=== PATIENT | female | born 1940 | race Caucasian/White ===

== ENCOUNTER 2016-03-06 03:01 | Emergency (ER) | payer MEDICARE, MEDICAID ==
[~2016-03-06] VITALS: Ht 165.1 cm; Wt 61.2 kg
[2016-03-06 03:02] VITALS: BP 147/52
== END 2016-03-06 04:04 | disposition home or self-care (01) ==
LOC: ER 03:08
DX: K94.03 Colostomy malfunction (principal); G93.40 Encephalopathy, unspecified; J44.9 Chronic obstructive pulmonary disease, unspecified; E11.9 Type 2 diabetes mellitus without complications; E78.5 Hyperlipidemia, unspecified; F03.90 Unspecified dementia, unspecified severity, without behavioral disturbance, psychotic disturbance, mood disturbance, and anxiety; I10 Essential (primary) hypertension; I48.91 Unspecified atrial fibrillation; Z86.73 Personal history of transient ischemic attack (TIA), and cerebral infarction without residual deficits; Z93.1 Gastrostomy status; Z88.6 Allergy status to analgesic agent; Z88.5 Allergy status to narcotic agent
CPT/HCPCS: 43760; 74000; 99284; A4606; Z7610

== ENCOUNTER 2016-08-05 04:25 | Inpatient (IN) | payer MEDICARE, MEDICAID ==
[~2016-08-05] VITALS: Ht 160 cm; Wt 69.4 kg
[2016-08-05] VITALS (39 sets, daily range): BP systolic 58–177; BP diastolic 21–93
--- NOTE | 2016-08-05 04:30 | NUR ---
PT BIB [facility] WITH A C/O SOB. PT ARRIVED ON A BREATHING TX. PT IS SATURATING AT 95%. PT IS BASELINE CONFUSED PER EMS. PT IS ON THE MONITOR AND CONTINUOUS PULSE OX. PT HAS BLE CONTRACTURES. PT WAS TAKEN OFF THE BREATHING TX. PT TO BE PLACED ON SIMPLE MASK. PT IS ON A DIAPER AND HAS A GTUBE. DR. SHAHID IS AT THE BEDSIDE.
[2016-08-05] MEDS ORDERED: IV NS 0.9% 500 ML BAG IV ONE (05:00)
[2016-08-05] MEDS ORDERED: methylPREDNISolone SOD SUCC 125 MG/2ML VIAL IV ONE (05:00)
[2016-08-05 05:01] LABS: BASOPHILS % (AUTO) 0.2 % (0.0-2.0); HEMATOCRIT 34 % (33-45); LYMPHOCYTES # (AUTO) 0.6 /CMM (0.8-4.8); LYMPHOCYTES % (AUTO) 3.9 % (20.0-44.0); MEAN CORPUSCULAR HEMOGLOBIN 25 PG (26.0-33.0); MEAN CORPUSCULAR HGB CONC 32 g/dl (31.0-36.0); MEAN CORPUSCULAR VOLUME 77 fL (82-100); MONOCYTES # (AUTO) 0.6 /CMM (0.1-1.30); MONOCYTES % (AUTO) 3.8 % (2.0-12.0); NEUTROPHILS # (AUTO) 13.7 /CMM (1.8-8.9); NEUTROPHILS % (AUTO) 92.1 % (43.0-81.0); PLATELET COUNT (AUTO) 365 /CMM (150-450); RED BLOOD CELL COUNT(AUTO) 4.41 MIL/uL (4.0-5.2); WHITE BLOOD COUNT (AUTO) 14.9 K/uL (4.3-11.0)
--- NOTE | 2016-08-05 05:05 | NUR ---
PT ASSIGNED TO [facility] BED 309-1
[2016-08-05 05:09] LABS: CALCIUM, SERUM 8.6 mg/dL (8.5-10.1); CARBON DIOXIDE 22 mmol/L (21-32); CHLORIDE 105 mmol/L (98-107); CREATININE 0.8 mg/dL (0.6-1.3); GLUCOSE 271 mg/dL (74-106); POTASSIUM 4.6 mmol/L (3.5-5.1); SODIUM SERUM 138 mmol/L (136-145); UREA NITROGEN, BLOOD 40 mg/dL (7-18)
[2016-08-05] MEDS ORDERED: IV SET PRIMARY 1 EA INFUS.SET MC ONE ×2 (05:09→06:01)
[2016-08-05] MEDS ORDERED: IV NS 0.9% 500 ML IV ONE ×2 (05:09→06:01)
[2016-08-05] MEDS ORDERED: methylPREDNISolone SOD SUCC 125 MG/2ML VIAL ONE (05:09)
[2016-08-05 05:15] LABS: INR 3.23 (0.87-1.13); PROTHROMBIN TIME 37.3 SECS (9.5-12.7)
--- NOTE | 2016-08-05 05:15 | NUR ---
PT HAS A WET DIAPER. PT WAS CLEANED AND NEW DIAPER APPLIED. NO SKIN BREAKDOWN NOTED. SLIGHT REDNESS NOTED ON RT INNER THIGH AND SLIGHT DISCOLORATION ON BUTTOCK.
[2016-08-05 05:18] LABS: TROPONIN I 9.906 ng/mL (0.00-0.056)
[2016-08-05] MEDS ORDERED: MAGN400O4 GT (05:20)
[2016-08-05] MEDS ORDERED: ATOR10TA GT (05:20)
[2016-08-05] MEDS ORDERED: WARF3TAB29 PO (05:20)
[2016-08-05] MEDS ORDERED: MAGN400O4 PO (05:20)
[2016-08-05] MEDS ORDERED: NA P133E RC (05:20)
[2016-08-05] MEDS ORDERED: CRAN3875 PO (05:20)
[2016-08-05] MEDS ORDERED: NUT.237L30 PO (05:20)
[2016-08-05] MEDS ORDERED: DOCU-25 PO (05:20)
[2016-08-05] MEDS ORDERED: ACET-868 GT (05:20)
[2016-08-05] MEDS ORDERED: BISA-79 PO (05:20)
[2016-08-05] MEDS ORDERED: INSU100V10 SQ (05:20)
[2016-08-05] MEDS ORDERED: LOSA25TA13 GT (05:20)
[2016-08-05] MEDS ORDERED: METO50TA3 GT (05:20)
[2016-08-05] MEDS ORDERED: DEXT1CAP3 GT (05:20)
[2016-08-05 05:21] LABS: ALANINE AMINOTRANSFERASE 27 U/L (12-78); ALBUMIN 2.6 g/dL (3.4-5.0); ALKALINE PHOSPHATASE 136 U/L (46-116); ASPARTATE AMINOTRANSFERASE 88 U/L (15-37); B-TYPE NATRIURETIC PEPTIDE 16681 PG/ML (0-125); BILIRUBIN,DIRECT 0.1 mg/dL (0.0-0.2); BILIRUBIN,TOTAL 0.9 mg/dL (0.2-1.0); TOTAL PROTEIN, SERUM 7.4 g/dL (6.4-8.2)
[2016-08-05 05:25] LABS: BAND % (MANUAL) 1 % (0.0-5.0); LYMPHOCYTES % (MANUAL) 4 % (16-48); MONOCYTES % (MANUAL) 6 % (0-11.0); NEUTROPHILS % (MANUAL) 89 (42-76)
[2016-08-05] MEDS ORDERED: HEPARIN INFUSION/D5W 500 ML IV PRN (05:30)
--- NOTE | 2016-08-05 05:30 | NUR ---
IN & OUT SNOW DONE. APPROX 50 ML CONCENTRATED URINE OUTPUT NOTED.
[2016-08-05 05:57] LABS: APPEARANCE,URINE CLOUDY (CLEAR); BILIRUBIN,URINE NEGATIVE (NEGATIVE); BLOOD, URINE 1+ Ery/uL (NEGATIVE); COLOR,URINE YELLOW (YELLOW); KETONES,URINE NEGATIVE (NEGATIVE); LEUKOCYTE ESTERASE ,URINE TRACE (NEGATIVE); NITRITE, URINE NEGATIVE (NEGATIVE); PH,URINE 5.5 (5.0-8.0); PROTEIN,URINE TRACE mg/dl (NEGATIVE); UGLUCOSE NEGATIVE (NEGATIVE)
[2016-08-05] MEDS ORDERED: VANCOMYCIN 1 GM VIAL ONE (05:59)
[2016-08-05] MEDS ORDERED: IV SET PRIMARY PUMP SET 1 EA INFUS.SET MC ONE ×4 (05:59→23:28)
[2016-08-05] MEDS ORDERED: AZTREONAM 1 G in IV NS 0.9% 100 ML IV ONE (06:00)
[2016-08-05] MEDS ORDERED: CLINDAMYCIN 900 MG in IV D5W 100 ML IV ONE (06:00)
[2016-08-05] MEDS ORDERED: HEPARIN INFUSION/D5W 500 ML IV ONE (06:00)
[2016-08-05] MEDS ORDERED: VANCOMYCIN 1 GM in IV D5W 250 ML IV ONE (06:00)
[2016-08-05 06:01] LABS: WBC,URINE 0-2 /HPF (0-3)
[2016-08-05] MEDS ORDERED: IV NS 0.9% 1,000 ML ONE (06:01)
[2016-08-05 06:02] LABS: BACTERIA,URINE 4+ /HPF (None Seen); MUCUS,URINE Few /LPF (None Seen); SQUAMOUS EPITHELIAL CELL,UR Few /HPF (None Seen)
--- NOTE | 2016-08-05 06:09 | NUR ---
DOUBLE CHECKED HEPARIN DRIP WITH CHARGE NURSE ELMER MAY.
--- NOTE | 2016-08-05 06:23 | NUR ---
20G IV STARTED IN RT HAND.
--- NOTE | 2016-08-05 06:45 | NUR ---
REPORT GIVEN TO ELMER MASTERS- OSMANY. ENDORSED CLEOCIN AND AZACTAM TO ELMER MASTERS.
[2016-08-05] MEDS ORDERED: Z GUARD REMEDY 2 OZ OINT TP PRN (07:00)
[2016-08-05] MEDS ORDERED: ONDANSETRON HCL/PF 4 MG/2 ML VIAL IVP PRN (07:00)
[2016-08-05] MEDS ORDERED: BISACODYL (5 MG) 5 MG TABLET.DR PO PRN (07:00)
[2016-08-05] MEDS ORDERED: ZOLPIDEM TARTRATE 5 MG TABLET PO PRN (07:00)
[2016-08-05] MEDS ORDERED: HYDROCODONE/APAP 5/325MG 1 EACH TABLET GT PRN (07:00)
[2016-08-05] MEDS ORDERED: MAGNESIUM HYDROXIDE 30 ML UDC PO PRN (07:00)
[2016-08-05] MEDS ORDERED: ACETAMINOPHEN 325 MG TABLET PO PRN (07:00)
[2016-08-05] MEDS ORDERED: MAG HYDROX/AL HYDROX/SIMETH 30 ML UDC PO PRN (07:00)
[2016-08-05] MEDS ORDERED: CEFTRIAXONE 1 G in IV D5W 50 ML IV SCH (07:00)
--- NOTE | 2016-08-05 07:20 | NUR ---
RN NOTES RECEIVED PT IN BED, UPRIGHT SITTING POSITION. ON O2@2LPM VIA SIMPLE MASK, PT NOTED WITH LABORED BREATHING, SATING 70'S. INCREASED O2, PLACED PT ON NRB @15LPM. RT AT BEDSIDE, STAT ABG DONE. CURRENTLY ON HEPARIN DRIP @1035U/HR INFUSING ON R HAND. ONGOING IV VANCO INFUSING ON L HAND. PT NOTED PALE AND DIAPHORETIC. SAFETY MAINTAINED. KEPT PT ON CLOSE MONITORING
[2016-08-05 07:48] LABS: ABG BASE EXCESS -21.7 mmol/L; ABG OXYGEN SATURATION 91.9 % (92.0-98.5); ABG PCO2 19.3 mmHg (35.0-45.0); ABG PH 7.105 (7.350-7.450); ABG PO2 79.3 mmHg (75.0-100.0); AaDO2 470.8 mmHg; COHb 0.8 % (0.5-1.5); MetHb 0.6 % (0.0-1.5); O2Hb 90.6 % (94.0-97.0); SITE, ABG Right Radial; VENT MODE, BG NRB
--- NOTE | 2016-08-05 08:04 | NUR ---
RN NOTES STAT ABG RESULT: PH 7.1 CO2 19.[address] IBETH COIL TESTER HAS BEEN PAGED
--- NOTE | 2016-08-05 08:10 | NUR ---
RN NOTES SPOKE WITH DR JACOB, REPORTED PT CURRENT CONDITION, TROP 9. PER DR JACOB OK TO CONTINUE HEPARIN DRIP
[2016-08-05] MEDS ORDERED: Medication Not On Formulary EA (Warfarin Sodium (Coumadin) 1 TAB) PO SCH (09:00)
[2016-08-05] MEDS ORDERED: LOSARTAN POTASSIUM 25 MG TABLET GT SCH (09:00)
[2016-08-05] MEDS ORDERED: FUROSEMIDE 40 MG/4 ML VIAL IV SCH (09:00)
[2016-08-05] MEDS ORDERED: METOPROLOL TARTRATE 50 MG TABLET GT SCH (09:00)
[2016-08-05] MEDS ORDERED: DOCUSATE SODIUM 100 MG CAPSULE PO SCH (09:00)
[2016-08-05] MEDS ORDERED: IV NS 0.9% 1,000 ML IV PRN ×2 (09:30→10:06)
[2016-08-05] MEDS ORDERED: Z GUARD REMEDY 4 OZ OINT TP PRN (09:30)
[2016-08-05] MEDS: PANTOPRAZOLE 40 MG TABLET.DR PO SCH (10:30)
[2016-08-05] MEDS ORDERED: ASPIRIN 300 MG/SUPP.RECT RC SCH (11:00)
[2016-08-05] MEDS ORDERED: CLOPIDOGREL BISULFATE 75 MG TABLET PO ONE (11:00)
--- NOTE | 2016-08-05 11:00 | NUR ---
RN NOTES PT TRANSFERRED TO ICU RM 262 FOR CONTINUITY OF CARE. REPORT GIVEN TO CORINE PAYNE
[2016-08-05] MEDS: IPRATROPIUM NEB FS 0.5 MG/2.5 ML AMPUL.NEB NEB SCH ×3 (11:56→20:14)
[2016-08-05] MEDS ORDERED: DEXTROSE 50%-WATER 50 ML DISP.SYRIN IV PRN (12:00)
[2016-08-05] MEDS ORDERED: NOREPINEPHRINE 8 MG in IV D5W 500 ML IV PRN (12:00)
[2016-08-05] MEDS ORDERED: DOSE PER PHARMACY (MD SPECIFY MEDICATION) 1 EA XX PRN (12:00)
[2016-08-05] MEDS: DOCUSATE SODIUM LIQ 100 MG/10 ML UDC GT SCH (12:02)
[2016-08-05] MEDS: BLOOD SUGAR DIAGNOSTIC 1 EACH STRIP IN SCH ×2 (12:02→17:35)
[2016-08-05 12:03] LABS: IRON, SERUM 21 ug/dl (50-175); TOTAL IRON BINDING CAPACITY 300 ug/dl (250-450)
[2016-08-05 12:48] LABS: ABG BASE EXCESS -4.8 mmol/L; ABG OXYGEN SATURATION 98.5 % (92.0-98.5); ABG PCO2 25.7 mmHg (35.0-45.0); ABG PH 7.457 (7.350-7.450); ABG PO2 146.6 mmHg (75.0-100.0); AaDO2 540.7 mmHg; COHb 0.9 % (0.5-1.5); MetHb 0.6 % (0.0-1.5); SITE, ABG Left Radial; VENT MODE, BG non rebreather
[2016-08-05] MEDS ORDERED: FEE PK DOSING 1 MIN EA MC ONE (13:00)
--- NOTE | 2016-08-05 13:00 | NUR ---
leadership program intern patient received from [facility] laboured breathing noted, mainatined on non rebreathing mask at 15 liters with on going NS at 50ml monitored troponin troponin was high infomred credit card control clerk, no new managment ordered endorsed to nod
[2016-08-05] MEDS: INSULIN REGULAR, HUMAN 100 UNIT/ML 3 ML VIAL SQ PRN ×3 (13:09→23:19)
[2016-08-05 13:28] LABS: INR 3.36 (0.87-1.13); PROTHROMBIN TIME 38.8 SECS (9.5-12.7)
[2016-08-05] MEDS ORDERED: SECONDARY IV SET 1 EA INFUS.SET MC ONE (13:40)
[2016-08-05] MEDS: MEROPENEM 1 G in IV NS 0.9% 100 ML IV SCH (13:44)
[2016-08-05] MEDS: METOPROLOL TARTRATE 50 MG TABLET GT SCH (17:00)
[2016-08-05] MEDS: ATORVASTATIN 10 MG TABLET GT SCH (17:35)
--- NOTE | 2016-08-05 21:04 | NUR ---
agricultural science professor. initial assessment. received the pt rest on the bed. pt awake, alert, confused. lower extremity concentrated. oxygen 5l via simple mask. hob elevated. npo. quality assurance monitor showing nsr. iv rt upper arm mid line ivf ns 50ml/h. levophed 8mg/min. gt clamped. turn and reposition q2h. will continue to monitor vitals.
[2016-08-05] MEDS ORDERED: LORAZEPAM INJ 2 MG/ML VIAL ONE (21:55)
[2016-08-05] MEDS ORDERED: LORAZEPAM INJ 2 MG/ML VIAL IV PRN (22:00)
[2016-08-05] MEDS ORDERED: PHENYLEPHRINE 10 MG/ML VIAL ONE (22:38)
[2016-08-05 22:39] LABS: ABG BASE EXCESS -11.1 mmol/L; ABG OXYGEN SATURATION 90.9 % (92.0-98.5); ABG PCO2 24.5 mmHg (35.0-45.0); ABG PH 7.342 (7.350-7.450); ABG PO2 67.3 mmHg (75.0-100.0); AaDO2 477.4 mmHg; COHb 0.9 % (0.5-1.5); MetHb 0.9 % (0.0-1.5); O2Hb 89.3 % (94.0-97.0); SITE, ABG Right Radial; VENT MODE, BG 15L NRB
[2016-08-05] MEDS ORDERED: IV D5W 250 ML IV ONE (22:39)
[2016-08-05] MEDS ORDERED: FEE EMEERGENCY 1 MIN EA MC ONE (23:00)
[2016-08-05] MEDS ORDERED: ROCURONIUM BROMIDE 50 MG/5 ML IV ONE (23:00)
[2016-08-05] MEDS ORDERED: ETOMIDATE 2 MG/ML VIAL IV ONE (23:00)
--- NOTE | 2016-08-05 23:02 | NUR ---
DIRECTOR OF RESTAURANT. PT AGITATED. VINCENT CALLED DR WIGGINS NEW ORDER RECEIVED. ATIVAN 0.5MG GIVEN.WILL CONTINUE TO MONITOR VITALS.
--- NOTE | 2016-08-05 23:04 | NUR ---
RECONCILIATION MACHINE OPERATOR. PT TACHYPNEIC HEART RATE [address] S[address] WIGGINS. CHANGED FROM LEVO TO CAL. DR WIGGINS AWARE ABG RESULT.WILL CONTINUE TO MONITOR,
[2016-08-05] MEDS: PHENYLEPHRINE 80 MG in IV D5W 250 ML IV PRN (23:10)
[2016-08-05] MEDS ORDERED: PROPOFOL 100 ML IV ONE (23:28)
[2016-08-05] MEDS ORDERED: FENTANYL PF 100MCG/2ML AMPUL ONE (23:29)
[2016-08-05] MEDS ORDERED: DIGOXIN INJ 0.5 MG/2 ML AMPUL IV ONE (23:30)
[2016-08-05] MEDS ORDERED: Sodium Bicarbonate 150 MEQ in IV NS 0.9% 1,000 ML IV PRN (23:30)
[2016-08-06] VITALS (79 sets, daily range): BP systolic 46–143; BP diastolic 21–98
[2016-08-06] LABS: EOSINOPHILS % (AUTO) 0.1 % (0.0-6.0); HEMATOCRIT 34 % (33-45); HEMOGLOBIN 10.6 g/dL (11.5-14.8); LYMPHOCYTES # (AUTO) 0.9 /CMM (0.8-4.8); LYMPHOCYTES % (AUTO) 3.6 % (20.0-44.0); MEAN CORPUSCULAR HEMOGLOBIN 24 PG (26.0-33.0); MEAN CORPUSCULAR HGB CONC 31 g/dl (31.0-36.0); MEAN CORPUSCULAR VOLUME 79 fL (82-100); MONOCYTES % (AUTO) 4.2 % (2.0-12.0); NEUTROPHILS # (AUTO) 22.7 /CMM (1.8-8.9); NEUTROPHILS % (AUTO) 92.1 % (43.0-81.0); PLATELET COUNT (AUTO) 461 /CMM (150-450); RDW COEFFICIENT OF VARIATION 18.5 (11.5-15.0); RED BLOOD CELL COUNT(AUTO) 4.36 MIL/uL (4.0-5.2); WHITE BLOOD COUNT (AUTO) 24.6 K/uL (4.3-11.0)
[2016-08-06] MEDS: IPRATROPIUM NEB FS 0.5 MG/2.5 ML AMPUL.NEB NEB SCH ×7 (00:07→23:40)
[2016-08-06] MEDS ORDERED: DIGOXIN INJ 0.5 MG/2 ML AMPUL ONE (00:09)
[2016-08-06 00:10] LABS: CALCIUM, SERUM 8.6 mg/dL (8.5-10.1); CARBON DIOXIDE 18 mmol/L (21-32); CHLORIDE 106 mmol/L (98-107); CREATININE 1.2 mg/dL (0.6-1.3); GLUCOSE 339 mg/dL (74-106); POTASSIUM 4.6 mmol/L (3.5-5.1); SODIUM SERUM 140 mmol/L (136-145); UREA NITROGEN, BLOOD 45 mg/dL (7-18)
[2016-08-06] MEDS ORDERED: IV NS 0.9% 1,000 ML ONE ×2 (00:10→10:42)
[2016-08-06] MEDS ORDERED: SODIUM BICARBONATE SYR 50 MEQ/50 ML DISP.SYRIN ONE (00:10)
[2016-08-06] MEDS ORDERED: IV SET PRIMARY PUMP SET 1 EA INFUS.SET MC ONE ×3 (00:11→04:02)
[2016-08-06] MEDS: BLOOD SUGAR DIAGNOSTIC 1 EACH STRIP IN SCH ×19 (00:14→22:41)
[2016-08-06 00:16] LABS: ALANINE AMINOTRANSFERASE 39 U/L (12-78); ALBUMIN 2.3 g/dL (3.4-5.0); ALKALINE PHOSPHATASE 121 U/L (46-116); ASPARTATE AMINOTRANSFERASE 153 U/L (15-37); BILIRUBIN,DIRECT 0.2 mg/dL (0.0-0.2); BILIRUBIN,TOTAL 1.1 mg/dL (0.2-1.0); MAGNESIUM 2.4 mg/dL (1.8-2.4); TOTAL PROTEIN, SERUM 6.8 g/dL (6.4-8.2)
[2016-08-06] MEDS: VANCOMYCIN 1 GM in IV D5W 250 ML IV SCH ×2 (00:16→17:36)
[2016-08-06 00:18] LABS: PROTHROMBIN TIME 56.8 SECS (9.5-12.7)
[2016-08-06 00:22] LABS: INR 4.8 (0.87-1.13)
[2016-08-06 00:44] LABS: LYMPHOCYTES % (MANUAL) 4 % (16-48); MONOCYTES % (MANUAL) 2 % (0-11.0); NEUTROPHILS % (MANUAL) 94 (42-76)
[2016-08-06 00:50] LABS: ABG BASE EXCESS -13.9 mmol/L; ABG OXYGEN SATURATION 35.3 % (92.0-98.5); ABG PCO2 40.7 mmHg (35.0-45.0); ABG PH 7.155 (7.350-7.450); MetHb 1.1 % (0.0-1.5); O2Hb 34.6 % (94.0-97.0); PEEP,BG 5 cm H2O; VENT MODE, BG VENOUS AC 22 400 100% +5; VT, ABG 400 mL
[2016-08-06] MEDS ORDERED: IV NS 0.9% 1,000 ML BAG IV ONE (01:00)
[2016-08-06] MEDS: INSULIN DETEMIR 100 UNIT/ML CARTRIDGE SQ SCH ×2 (01:05→22:47)
[2016-08-06] MEDS: PROPOFOL 100 ML IV PRN ×2 (01:08→22:39)
[2016-08-06] MEDS ORDERED: IV D5W 50 ML IV ONE (01:24)
[2016-08-06] MEDS ORDERED: PHYTONADIONE INJ 10 MG/1 ML AMPUL ONE (01:24)
[2016-08-06] MEDS ORDERED: SECONDARY IV SET 1 EA INFUS.SET MC ONE ×2 (01:25→17:38)
[2016-08-06] MEDS ORDERED: FENTANYL PF 100MCG/2ML AMPUL IV ONE (01:30)
[2016-08-06] MEDS ORDERED: PHYTONADIONE INJ 1 MG in IV D5W 50 ML IV ONE ×2 (01:30→02:00)
[2016-08-06] MEDS: MEROPENEM 1 G in IV NS 0.9% 100 ML IV SCH ×2 (01:56→17:38)
[2016-08-06 02:11] LABS: ABG BASE EXCESS -14.6 mmol/L; ABG OXYGEN SATURATION 55.9 % (92.0-98.5); ABG PH 7.145 (7.350-7.450); ABG PO2 42.2 mmHg (75.0-100.0); COHb 1.3 % (0.5-1.5); MetHb 0.8 % (0.0-1.5); O2Hb 54.7 % (94.0-97.0); PEEP,BG 5 cm H2O; VENT MODE, BG VENOUS AC 24 450 100% +5; VT, ABG 450 mL
--- NOTE | 2016-08-06 02:20 | NUR ---
CHALK CUTTER. PT TACHYPNEIC AGITATED, HEART RATE 140.ER DR RUANO ASSESS THE PT AND INTUBATED, ETT #7, AC 28, LIP 23 TV 450, FIO2 100%, PEEP 5. SAT 90%. DIPRIVAN STARTED.CRITICAL RESULT LAB CALLED FOR INR 4.8, VITAMIN K 1MG GIVEN. SNOW INSERTED. IVF NS 1L BOLUS GIVEN. DIOGO SOFT WRIST RESTRAINT INITIATED.WILL CONTINUE TO MONITOR VITALS.CALLED FAMILY AND LEFT MESSAGE
--- NOTE | 2016-08-06 02:29 | NUR ---
MONONITROTOLUENE OPERATOR BLOOD SUGAR 429. PAGED DR WIGGINS.
[2016-08-06] MEDS: INSULIN REGULAR, HUMAN 100 UNIT/ML 3 ML VIAL SQ PRN (02:33)
--- NOTE | 2016-08-06 03:47 | NUR ---
MANAGER MOUNTAIN. PT BL;OOD SUGAR 425. PAGED DR WIGGINS INSULIN DRIP STARTED
[2016-08-06] MEDS ORDERED: INSULIN REGULAR, HUMAN 100 UNIT/ML 10 ML VIAL ONE (04:00)
[2016-08-06] MEDS ORDERED: INSULIN REGULAR, HUMAN 100 UNIT in IV NS 0.9% 99 ML IV PRN ×2 (04:00)
[2016-08-06] MEDS ORDERED: IV NS 0.9% 100 ML IV ONE (04:02)
[2016-08-06] MEDS ORDERED: PHENYLEPHRINE 10 MG/ML VIAL ONE (04:47)
[2016-08-06] MEDS ORDERED: IV D5W 250 ML IV ONE (04:47)
[2016-08-06] MEDS: PHENYLEPHRINE 80 MG in IV D5W 250 ML IV PRN ×3 (04:58→23:00)
[2016-08-06 05:21] LABS: HEMATOCRIT 32 % (33-45); HEMOGLOBIN 10.2 g/dL (11.5-14.8); LYMPHOCYTES # (AUTO) 0.9 /CMM (0.8-4.8); MEAN CORPUSCULAR HEMOGLOBIN 25 PG (26.0-33.0); MEAN CORPUSCULAR HGB CONC 32 g/dl (31.0-36.0); MEAN CORPUSCULAR VOLUME 79 fL (82-100); MONOCYTES # (AUTO) 0.4 /CMM (0.1-1.30); MONOCYTES % (AUTO) 1.9 % (2.0-12.0); NEUTROPHILS # (AUTO) 22.2 /CMM (1.8-8.9); NEUTROPHILS % (AUTO) 94.1 % (43.0-81.0); PLATELET COUNT (AUTO) 446 /CMM (150-450); RED BLOOD CELL COUNT(AUTO) 4.08 MIL/uL (4.0-5.2); WHITE BLOOD COUNT (AUTO) 23.5 K/uL (4.3-11.0)
[2016-08-06 05:34] LABS: CALCIUM, SERUM 7.6 mg/dL (8.5-10.1); CARBON DIOXIDE 19 mmol/L (21-32); CHLORIDE 106 mmol/L (98-107); CREATININE 1.4 mg/dL (0.6-1.3); MAGNESIUM 2.2 mg/dL (1.8-2.4); PHOSPHORUS 3.7 mg/dL (2.5-4.9); POTASSIUM 4.4 mmol/L (3.5-5.1); SODIUM SERUM 140 mmol/L (136-145); UREA NITROGEN, BLOOD 48 mg/dL (7-18)
[2016-08-06 05:39] LABS: CHOLESTEROL 149 mg/dL (<200); HDL CHOLESTEROL 39 mg/dL (40-60); LDL 94 mg/dL (0-99); TRIGLYCERIDES 92 mg/dL (30-150)
--- NOTE | 2016-08-06 05:46 | NUR ---
APPLICATIONS SUPPORT ANALYST. AM CARE. ORAL CARE, BED BATH GIVEN. LINEN CHANGED. REMAINING SAME VENT SETTINGS. SAT 98%. NO ACUTE DISTRESS NOTED. SALESFORCE SPECIALIST SHOWING S TACH. IV RT UPPER ARM MID LINE IVF BICARB DRIP 100ML/H, DIPRIVAN 10MCG/KG/MIN,LEVOPHED 10MCG/MIN, CAL 300MCG/MIN, INSULIN DRIP PER BLOOD SUGAR. ACCU CHECK Q1H. AFEBRILE. FC PATENT. DIOGO SOFT WRIST RESTRAINT CHECKED AND RELEASED. NO INJURY OR REDNESS NOTED.GT CLAMPED. NPO. HOB ELEVATED. TURN AND REPOSITION Q2H.
[2016-08-06 06:01] LABS: BAND % (MANUAL) 2 % (0.0-5.0); LYMPHOCYTES % (MANUAL) 2 % (16-48); MONOCYTES % (MANUAL) 2 % (0-11.0); NEUTROPHILS % (MANUAL) 94 (42-76)
[2016-08-06 06:18] LABS: GLUCOSE 358 mg/dL (74-106)
[2016-08-06] MEDS ORDERED: IV NS 0.9% 1,000 ML IV PRN (06:44)
--- NOTE | 2016-08-06 07:58 | NUR ---
RT PATIENT REC'D ORALLY INTUBATED ON [facility] VENT WITH SETTINGS SET PER MD FRANC GRIMM. VENT ALARMS CHECKED + AUDIBLE. CUFF PRESSURE CHECKED PERINATAL SOCIAL WORKER. ETT SECURE AND IN PROPER POSITION. VENT PLUGGED INTO RED OUTLET. B/S DIM COARSE. SX'D WITH SM/MD FUNEZT PALE SEMITHICK SECRETIONS. PATIENT IN CRITICAL CONDITION. AMBU BAG AT [facility]. CONT CURRENT PLAN OF RESP CARE. Addendum: 08/07/16 at 0800 by ELIZABETH HALLMAN RT Amended: Links added.
[2016-08-06] MEDS: CLOPIDOGREL BISULFATE 75 MG TABLET PO SCH (08:00)
[2016-08-06] MEDS: PANTOPRAZOLE 40 MG TABLET.DR PO SCH (08:00)
[2016-08-06] MEDS: DOCUSATE SODIUM LIQ 100 MG/10 ML UDC GT SCH (08:00)
[2016-08-06] MEDS: METOPROLOL TARTRATE 50 MG TABLET GT SCH (08:03)
[2016-08-06 10:38] LABS: ABG BASE EXCESS -0.1 mmol/L; ABG OXYGEN SATURATION 91.3 % (92.0-98.5); ABG PCO2 27.7 mmHg (35.0-45.0); ABG PH 7.517 (7.350-7.450); ABG PO2 60.7 mmHg (75.0-100.0); AaDO2 552.6 mmHg; COHb 0.4 % (0.5-1.5); MetHb 0.2 % (0.0-1.5); O2Hb 90.8 % (94.0-97.0); PEEP,BG 0 cm H2O; SITE, ABG Left Radial; VT, ABG 450 mL
[2016-08-06] MEDS ORDERED: IV NS 0.9% 500 ML IV ONE (10:43)
--- NOTE | 2016-08-06 12:36 | NUR ---
PICC LINE INSERTED AT BEDSIDE AT THIS TIME. NO ACUTE DISTRESS, NO ACTIVE BLEEDING. CONTINUES MONITORED. Addendum: 08/06/16 at 1237 by AYE ESPINOZA RN Amended: Links added.
[2016-08-06] MEDS: ATORVASTATIN 10 MG TABLET GT SCH (17:35)
--- NOTE | 2016-08-06 20:22 | NUR ---
KRAFT DIGESTER OPERATOR. INITIAL ASSESSMENT. RECEIVED THE PT REST ON THE BED. ORALLY INTUBATED. ETT 7, AC 28,LIP 23CM,TV 450,FIO2 90%.PEEP 5. SAT 95%. NETWORK CONTRACTOR SHOWING S TACH. IV RT UPPER ARM MID LINE, LT UPPER ARM PICC LINE. LEVOPHED 30MCG/MIN, CAL 300MCG/MIN, DIPRIVAN 20MCG/KG/MIN. GT CLAMPED/ NPO. HOB ELEVATED. FC PATENT. TURN AND REPOSITION Q2H. A LINE ZERO CALIBRATED. WILL CONTINUE TO MONITOR VITALS.
[2016-08-06] MEDS ORDERED: DEXTROSE 50%-WATER 50 ML DISP.SYRIN IV PRN (21:30)
[2016-08-06] MEDS ORDERED: IV NS 0.9% 250 ML IV ONE (22:26)
[2016-08-06] MEDS ORDERED: IV NS 0.9% 250 ML IV PRN (22:30)
[2016-08-07] VITALS (62 sets, daily range): BP systolic 10–121; BP diastolic 16–66
[2016-08-07] MEDS ORDERED: BLOOD SUGAR DIAGNOSTIC 1 EACH STRIP IN SCH ×2
[2016-08-07] MEDS ORDERED: NOREPINEPHRINE 4 MG/4 ML AMPUL IV ONE ×2 (00:10)
[2016-08-07] MEDS ORDERED: IV D5W 500 ML IV ONE ×3 (00:10→22:05)
[2016-08-07] MEDS: INSULIN REGULAR, HUMAN 100 UNIT/ML 3 ML VIAL SQ PRN ×7 (00:19→22:02)
[2016-08-07] MEDS: NOREPINEPHRINE 16 MG in IV D5W 500 ML IV PRN ×3 (00:30→17:20)
[2016-08-07] MEDS: MUPIROCIN OINT 2% 22 GM TUBE SCH ×3 (00:30→22:00)
[2016-08-07] MEDS: BLOOD SUGAR DIAGNOSTIC 1 EACH STRIP IN SCH ×8 (03:00→22:00)
[2016-08-07] MEDS: MEROPENEM 1 G in IV NS 0.9% 100 ML IV SCH ×2 (03:57→13:05)
[2016-08-07] MEDS: IPRATROPIUM NEB FS 0.5 MG/2.5 ML AMPUL.NEB NEB SCH ×6 (04:22→23:21)
--- NOTE | 2016-08-07 04:49 | NUR ---
ASSISTANT CORPORATE CONTROLLER. AM CARE, ORAL CARE, BED BATH GIVEN. LINEN CHANGED. REMAINING SAME VENT SETTINGS TOLERATED WELL. SAT 98%. IV RT UPPER ARM MID LINE, LT UPPER ARM PICC LINE. LEVOPHED 25MCG/MIN, CAL 300MCG/MIN, DIPRIVAN 20MCG/KG/M,IN. HOB ELEVATED. FF PATENT. URINE DRAINING. HOB ELEVATED. TURN AND REPOSITION Q2H. WILL CONTINUE TO MONITOR VITALS.
[2016-08-07 04:57] LABS: HEMATOCRIT 31 % (33-45); HEMOGLOBIN 9.9 g/dL (11.5-14.8); LYMPHOCYTES % (AUTO) 7.8 % (20.0-44.0); MEAN CORPUSCULAR HEMOGLOBIN 25 PG (26.0-33.0); MEAN CORPUSCULAR HGB CONC 33 g/dl (31.0-36.0); MEAN CORPUSCULAR VOLUME 77 fL (82-100); MONOCYTES # (AUTO) 0.2 /CMM (0.1-1.30); MONOCYTES % (AUTO) 0.7 % (2.0-12.0); NEUTROPHILS # (AUTO) 23.2 /CMM (1.8-8.9); NEUTROPHILS % (AUTO) 91.5 % (43.0-81.0); PLATELET COUNT (AUTO) 419 /CMM (150-450); RDW COEFFICIENT OF VARIATION 18.3 (11.5-15.0); RED BLOOD CELL COUNT(AUTO) 3.95 MIL/uL (4.0-5.2); WHITE BLOOD COUNT (AUTO) 25.3 K/uL (4.3-11.0)
[2016-08-07] MEDS: PROPOFOL 100 ML IV PRN ×2 (06:07→15:35)
[2016-08-07 06:45] LABS: ALANINE AMINOTRANSFERASE 429 U/L (12-78); ALBUMIN 1.8 g/dL (3.4-5.0); ALKALINE PHOSPHATASE 117 U/L (46-116); ASPARTATE AMINOTRANSFERASE 518 U/L (15-37); BILIRUBIN,TOTAL 1.1 mg/dL (0.2-1.0); CALCIUM, SERUM 7.5 mg/dL (8.5-10.1); CARBON DIOXIDE 22 mmol/L (21-32); CHLORIDE 101 mmol/L (98-107); CREATININE 0.9 mg/dL (0.6-1.3); GLUCOSE 199 mg/dL (74-106); MAGNESIUM 1.7 mg/dL (1.8-2.4); PHOSPHORUS 1.5 mg/dL (2.5-4.9); POTASSIUM 3.5 mmol/L (3.5-5.1); SODIUM SERUM 133 mmol/L (136-145); TOTAL PROTEIN, SERUM 5.6 g/dL (6.4-8.2); UREA NITROGEN, BLOOD 33 mg/dL (7-18)
--- NOTE | 2016-08-07 07:59 | NUR ---
RT PATIENT REC'D ORALLY INTUBATED ON [facility] VENT WITH SETTINGS SET PER MD FRANC GRIMM. VENT ALARMS CHECKED + AUDIBLE. CUFF PRESSURE CHECKED GRINDER SET UP OPERATOR INTERNAL. ETT SECURE AND IN PROPER POSITION. VENT PLUGGED INTO RED OUTLET. B/S DIM COARSE. SX'D WITH SM/ AMT PALE SEMITHICK SECRETIONS. PATIENT APPEARS COMFORTABLE AND IN NO DISTRESS AT THIS TIME. AMBU BAG AT HOB. CONT CURRENT PLAN OF RESP CARE. Addendum: 08/07/16 at 0800 by ELIZABETH HALLMAN RT Amended: Links added.
[2016-08-07] MEDS: PHENYLEPHRINE 80 MG in IV D5W 250 ML IV PRN ×4 (08:00→22:35)
[2016-08-07 08:26] LABS: ABG OXYGEN SATURATION 92.6 % (92.0-98.5); ABG PCO2 23.1 mmHg (35.0-45.0); ABG PH 7.521 (7.350-7.450); ABG PO2 64.2 mmHg (75.0-100.0); AaDO2 338.2 mmHg; COHb 0.1 % (0.5-1.5); MetHb 0.5 % (0.0-1.5); PEEP,BG 5 cm H2O; SITE, ABG A-Line; VT, ABG 450 mL
[2016-08-07] MEDS: CLOPIDOGREL BISULFATE 75 MG TABLET PO SCH (08:27)
[2016-08-07] MEDS: PANTOPRAZOLE 40 MG TABLET.DR PO SCH (08:27)
[2016-08-07] MEDS: DOCUSATE SODIUM LIQ 100 MG/10 ML UDC GT SCH (08:27)
[2016-08-07 09:18] LABS: BAND % (MANUAL) 8 % (0.0-5.0); LYMPHOCYTES % (MANUAL) 7 % (16-48); MONOCYTES % (MANUAL) 2 % (0-11.0); NEUTROPHILS % (MANUAL) 83 (42-76)
[2016-08-07 09:52] LABS: INR 1.95 (0.87-1.13); PROTHROMBIN TIME 21.8 SECS (9.5-12.7)
--- NOTE | 2016-08-07 09:57 | NUR ---
WOUND CARE CONSULT: PT PRESENTS WITH IMMOBILITY, CONTRACTED LOWER EXTREMITIES AND SCARRING TO BILATERAL HEELS. RT ANKLE AND SACRUM. ALL SKIN PROTECTION MEASURES IN PLACE AND DISCUSSED WITH NURSING STAFF. PT ON MARYANN ISOFLEX LOW AIRLOSS BED. WILL SEE PRN. URBINA IN AGREEMENT WITH PLAN OF CARE.
[2016-08-07] MEDS: Magnesium 1GM/D5W 100ML PREMIX 100 ML IV SCH ×2 (11:27→13:04)
[2016-08-07] MEDS: VANCOMYCIN 1 GM in IV D5W 250 ML IV SCH (13:02)
[2016-08-07] MEDS ORDERED: K PHOS NEUTRAL 250 MG TABLET PO ONE (13:30)
[2016-08-07 15:33] LABS: APPEARANCE,URINE CLEAR (CLEAR); BILIRUBIN,URINE NEGATIVE (NEGATIVE); BLOOD, URINE 2+ Ery/uL (NEGATIVE); COLOR,URINE YELLOW (YELLOW); KETONES,URINE NEGATIVE (NEGATIVE); LEUKOCYTE ESTERASE ,URINE NEGATIVE (NEGATIVE); NITRITE, URINE NEGATIVE (NEGATIVE); PROTEIN,URINE NEGATIVE (NEGATIVE); UGLUCOSE NEGATIVE (NEGATIVE); UROBILINOGEN,URINE 0.2 EU/dL (0.2)
[2016-08-07 15:40] LABS: BACTERIA,URINE Few /HPF (None Seen); CREATININE, URINE < 13.0 MG/DL (30.0-125.0); SQUAMOUS EPITHELIAL CELL,UR Few /HPF (None Seen); URINE SODIUM, RANDOM < 5 mmol/l (40-220); URINE TOTAL PROTEIN 8.9 mg/dL (0-11.9)
[2016-08-07 16:22] LABS: EOSINOPHIL,URINE None Seen
--- NOTE | 2016-08-07 20:00 | NUR ---
WINDOW CLERK NOTES RECEIVED PT IN BED, IN CRITICAL STATE. ON LEVO AND CAL MAINTAINING SBP >90. ON VENT VIA ETT AT ORDERED SETTINGS, TOLERATING FAIR. SEDATED ON DIPRIVAN. TELE READS ST AT [address], NPO AT THIS TIME. SNOW CATH IN PLACE, WITH DECREASING AMOUNTS OF URINE OUTPUT. KAYLEE MIDLINE, SINDY PICC, RIGHT WRIST A-LINE, CVP MONITORING. HOB SLIGHTLY ELEVATED, LOWER EXTREMITIES ELEVATED TO MAINTAIN BP.
--- NOTE | 2016-08-07 21:21 | NUR ---
PT RECEIVED INTUBATED ON VENT 7.0 ETT SECURED AT 24CM AT THE LIP. NO RESP DISTRESS. PT TOLERATING VENT SETTINGS. SX'D FOR MOD AMT OF THICK PALE SECRETIONS. VENT ALARMS SET AND AUDIBLE. AMBU BAG AT [facility]. VENT PLUGGED INTO RED OUTLET. WILL CONTINUE TO MONITOR. Addendum: 08/07/16 at 2124 by MICHAEL LOBO RT Amended: Links added.
[2016-08-07] MEDS ORDERED: IV NS 0.9% 250 ML IV ONE ×2 (21:49→22:00)
[2016-08-07] MEDS ORDERED: IV SET PRIMARY PUMP SET 1 EA INFUS.SET MC ONE ×2 (21:50→22:05)
[2016-08-07] MEDS ORDERED: AMIODARONE 150 MG/3 ML VIAL IV ONE ×2 (21:54)
[2016-08-07] MEDS ORDERED: VASOPRESSIN INJ 50 UNIT in IV D5W 497.5 ML IV PRN (22:00)
[2016-08-07] MEDS ORDERED: AMIODARONE 900 MG in IV D5W 482 ML IV PRN (22:00)
[2016-08-07] MEDS ORDERED: EPINEPHRINE (1:1000) 2 MG in IV D5W 250 ML IV PRN (22:00)
--- NOTE | 2016-08-07 22:00 | NUR ---
VIBRATING SCREEN OPERATOR NOTES PT BP DROPPED TO SBP 60s, HR ELEVATED AT [address] CASTANON CONTACTED AND MADE AWARE. NEW ORDERS RECEIVED. 250 NS BOLUS, VASOPRESSOR AT 0.04 UNITS/MIN, AMIO DRIP WITHOUT BOLUS AND EPINEPHRINE 4TH PRESSOR IN NEEDED.
[2016-08-07] MEDS: INSULIN DETEMIR 100 UNIT/ML CARTRIDGE SQ SCH (22:01)
[2016-08-07] MEDS ORDERED: VASOPRESSIN INJ 20 UNIT/ML VIAL ONE (22:05)
[2016-08-08] VITALS (9 sets, daily range): BP systolic 45–91; BP diastolic 32–60
[2016-08-08] MEDS: BLOOD SUGAR DIAGNOSTIC 1 EACH STRIP IN SCH (00:43)
[2016-08-08] MEDS: MEROPENEM 1 G in IV NS 0.9% 100 ML IV SCH (00:43)
[2016-08-08] MEDS: INSULIN REGULAR, HUMAN 100 UNIT/ML 3 ML VIAL SQ PRN (00:44)
[2016-08-08] MEDS ORDERED: EPINEPHRINE (1:1000) 1 MG/ML AMPUL ONE (01:08)
[2016-08-08] MEDS ORDERED: IV SET PRIMARY PUMP SET 1 EA INFUS.SET MC ONE (01:09)
[2016-08-08] MEDS ORDERED: IV D5W 250 ML IV ONE (01:09)
[2016-08-08] MEDS: NOREPINEPHRINE 16 MG in IV D5W 500 ML IV PRN (01:51)
--- NOTE | 2016-08-08 02:00 | NUR ---
FOREIGN LANGUAGES DEPARTMENT CHAIR NOTES DR NEWBERRY CALLED AND NOTIFIED ABOUT PT'S DECLINING STATUS. PER DR NEWBERRY, NO NEW ORDERS.
--- NOTE | 2016-08-08 02:20 | NUR ---
CUSTOMER EXPERIENCE ANALYST NOTES PT BROTHER (ROMI) CONTACTED. MADE AWARE OF PT'S DECLINING STATUS. CODE STATUS CHANGED TO DNR, CONFIRMED WITH [address] NEWBERRY CONTACTED AND MADE AWARE OF BROTHER'S REQUEST. NEW ORDERS RECEIVED TO CHANGE CODE STATUS TO DNR.
--- NOTE | 2016-08-08 02:25 | NUR ---
ICU/RN: PRONOUNCEMENT OF PT. CODE STATUS "DO NOT RESUSCITATE". PT. IS UNRESPONSIVE TO ANY FORM OF STIMULI. PUPILS ARE FIXED AND DILATED. ALL EXTREMITIES ARE FLACCID. EKG: ASYSTOLE X2 LEADS.PERIPHERAL PULSES ARE ABSENT. APNEIC, BREATH SOUNDS ARE ABSENT. NO SIGNS OF LIFE.PT. PRONOUNCED . BY MARTI ERICKSON RN
--- NOTE | 2016-08-08 02:45 | NUR ---
IRON WORKER FOREMAN NOTES PT'S BROTHER REFUSES TO SIGN OR GIVE CONSENT FOR RELEASE OF PT'S REMAINS DUE TO POSSIBILITY OF "INCURRING ANY HOSPITAL CHARGES." TOLL COLLECTOR SALLY MADE AWARE.
--- NOTE | 2016-08-08 04:06 | NUR ---
CHIEF INSPECTOR NOTES ALL NECESSARY PERSONAL NOTIFIED OF PT'S INCLUDING PT'S BROTHER (ROMI). ALL PAPERWORK COMPLETED FOR PT. PT'S REMAINS CLEANED, IV AND TUBING REMOVED. PT'S REMAINS TAKEN TO [facility] WITH TWO SECURITY GUARDS AND PRIMARY RN.
== END 2016-08-08 02:25 | disposition expired | DRG 871 ==
LOC: ER 04:26 → TELE-TD 06:38 → ICU 11:00
PROVIDERS: ADMIT Internal Medicine; ATTEND Internal Medicine
PROC: 05H533Z Insertion of Infusion Device into Right Subclavian Vein, Percutaneous Approach (ICD-10-PCS; 2016-08-05)
PROC: 5A1945Z Respiratory Ventilation, 24-96 Consecutive Hours (ICD-10-PCS; principal; 2016-08-06)
PROC: 0BH17EZ Insertion of Endotracheal Airway into Trachea, Via Natural or Artificial Opening (ICD-10-PCS; 2016-08-06)
PROC: 03HB33Z Insertion of Infusion Device into Right Radial Artery, Percutaneous Approach (ICD-10-PCS; 2016-08-06)
PROC: 02HV33Z Insertion of Infusion Device into Superior Vena Cava, Percutaneous Approach (ICD-10-PCS; 2016-08-06)
PROC: B548ZZA Ultrasonography of Superior Vena Cava, Guidance (ICD-10-PCS; 2016-08-06)
DX: A41.9 Sepsis, unspecified organism (principal); R65.21 Severe sepsis with septic shock; R53.2 Functional quadriplegia; I21.4 Non-ST elevation (NSTEMI) myocardial infarction; J96.01 Acute respiratory failure with hypoxia; J96.02 Acute respiratory failure with hypercapnia; I50.21 Acute systolic (congestive) heart failure; J69.0 Pneumonitis due to inhalation of food and vomit; G92 Toxic encephalopathy; N17.0 Acute kidney failure with tubular necrosis; J15.6 Pneumonia due to other Gram-negative bacteria; I50.23 Acute on chronic systolic (congestive) heart failure; E13.10 Other specified diabetes mellitus with ketoacidosis without coma; J44.1 Chronic obstructive pulmonary disease with (acute) exacerbation; J44.0 Chronic obstructive pulmonary disease with (acute) lower respiratory infection; D68.59 Other primary thrombophilia; E44.0 Moderate protein-calorie malnutrition; E87.3 Alkalosis; N39.0 Urinary tract infection, site not specified; I50.1 Left ventricular failure, unspecified; J90 Pleural effusion, not elsewhere classified; D63.8 Anemia in other chronic diseases classified elsewhere; E78.5 Hyperlipidemia, unspecified; F03.90 Unspecified dementia, unspecified severity, without behavioral disturbance, psychotic disturbance, mood disturbance, and anxiety; I48.0 Paroxysmal atrial fibrillation; R13.10 Dysphagia, unspecified; Z79.01 Long term (current) use of anticoagulants; Z93.1 Gastrostomy status; Z99.81 Dependence on supplemental oxygen; Z68.27 Body mass index [BMI] 27.0-27.9, adult; F48.2 Pseudobulbar affect; I11.0 Hypertensive heart disease with heart failure; L89.629 Pressure ulcer of left heel, unspecified stage; Z22.322 Carrier or suspected carrier of Methicillin resistant Staphylococcus aureus; B96.20 Unspecified Escherichia coli [E. coli] as the cause of diseases classified elsewhere; I25.10 Atherosclerotic heart disease of native coronary artery without angina pectoris; I69.320 Aphasia following cerebral infarction; F09 Unspecified mental disorder due to known physiological condition
CPT/HCPCS: 31720; 36415; 36569; 36600; 71010-TC; 80048-TC; 80053-TC; 80061-TC; 80076-TC; 80202-TC; 81000-TC; 82570-TC; 82803-TC; 82962-TC; 83540-TC; 83605-TC; 83735-TC; 83880; 84100-TC; 84155-TC; 84300-TC; 84484-TC; 85025-TC; 85610-TC; 85730-TC; 87040-TC; 87070-TC; 87081-TC; 87086-TC; 87186-TC; 92950-TC; 93307-TC; 94002-TC; 94003-TC; 94762-TC; 94799-TC; A4606; C1751; J0171; J0282; J0696; J1160; J1644; J1815; J2060; J2185; J2370; J2930; J3010; J3370; J3430; J3475; J3490; J7030; J7040; J7050; J7060; Z7610